=== PATIENT | female | born 1955 | race Caucasian/White ===

== ENCOUNTER → 2017-07-12 | Day surgery (SDC) | payer OTHER ==
[~2017-07-12] MED LIST: HYDROmorphone 2 MG/ML VIAL IV; LIDOCAINE 1% PF 2 ML VIAL. ID; LIDOCAINE 2% 100 MG/5 ML SYRINGE.; MORPHINE SULFATE 4 MG/ML DISP.SYRIN. IV; ONDANSETRON PF 4 MG/2 ML VIAL. IV; PROCHLORPERAZINE 10 MG/2 ML VIAL. IV; PROPOFOL 20 ML IV; fentaNYL PF VIAL 100 MCG/2 ML VIAL IV
[2017-07-12] MEDS: IV RINGERS,LACTATED 1000ML 1,000 ML IV (12:24)
== END ==
LOC: ENDOS 11:58
DX: K29.50 Unspecified chronic gastritis without bleeding (principal); K31.89 Other diseases of stomach and duodenum; Z79.899 Other long term (current) drug therapy
CPT/HCPCS: 43239; 88305; J2704

== ENCOUNTER → 2018-09-25 | Outpatient (CLI) | payer OTHER ==
[2017-07-12 13:33] VITALS: BP 116/62
[~2018-09-25] MED LIST changes: +DICL50TA4 PO; +GLUC1CAP41 PO; -HYDROmorphone 2 MG/ML VIAL IV; -LIDOCAINE 1% PF 2 ML VIAL. ID; -LIDOCAINE 2% 100 MG/5 ML SYRINGE.; +MELO15TA23 PO; +MOME17SP NS; -MORPHINE SULFATE 4 MG/ML DISP.SYRIN. IV; +MULT-208 PO; -ONDANSETRON PF 4 MG/2 ML VIAL. IV; -PROCHLORPERAZINE 10 MG/2 ML VIAL. IV; -PROPOFOL 20 ML IV; -fentaNYL PF VIAL 100 MCG/2 ML VIAL IV
[2018-09-25 08:14] LABS: HEMATOCRIT 39.1 % (36.0-47.0); RED BLOOD COUNT 4.02 x10^6/uL (3.50-5.40); RED CELL DISTRIBUTION WIDTH 14.7 % (11.5-14.5); WHITE BLOOD COUNT 5.7 x10^3/uL (4.0-11.0)
[2018-09-25 08:40] LABS: THYROID STIM HORMONE (TSH) 4.413 uIU/mL (0.358-3.74)
[2018-09-25 08:50] LABS: ALBUMIN 3.6 g/dL (3.4-5.0); ALBUMIN/GLOBULIN RATIO 1.2 (1.0-1.7); CHOLESTEROL/HDL RATIO 4.1; CREATININE 0.9 mg/dL (0.6-1.0); GFR 63.7; POTASSIUM 4.5 mmol/L (3.5-5.1); TOTAL BILIRUBIN 0.4 mg/dL (0.2-1.0); TOTAL PROTEIN 6.5 g/dL (6.4-8.2)
== END | disposition home or self-care (01) ==
LOC: LAB 07:49
PROVIDERS: ATTEND Nurse Practitioner Family
DX: Z13.228 Encounter for screening for other metabolic disorders (principal)
CPT/HCPCS: 36415; 80053; 80061; 82306; 84439; 84443; 85027

== ENCOUNTER → 2019-06-04 | Outpatient (CLI) | payer OTHER ==
[2017-07-12 13:33] VITALS: BP 116/62
--- NOTE | 2019-06-04 17:08 | KCIC ---
Bilateral digital screening mammograms with 3-D tomosynthesis: Reason for examination: Routine screening. New baseline. No previous examinations available for comparison. Bilateral mammograms in CC and oblique projections were obtained with 2-D imaging and 3-D tomosynthesis imaging on a Siemens Inspiration unit and reviewed on the workstation. Interpretation was made with the benefit of CAD. The skin and nipples show no abnormalities. No abnormal axillary lymph nodes are seen. The breast parenchyma shows scattered fatty and fibroglandular density. (Breast density: Category B.) There appears to be a small nodule consistent with an intramammary lymph node at the 2:00 B position of the left breast. There also appears to be a nodule laterally in the right breast probably at the 9:00 B position. Further evaluation with coned compression views and ultrasound is recommended. There are no other dominant masses, suspicious calcifications or architectural distortion. Impression: Nodular density suggested laterally in the right breast at the 9:00 B position. Recommend further evaluation with coned compression views and ultrasound. BI-RADS Category 0: Incomplete. Needs additional imaging evaluation. "Our facility is accredited by the [employer] Mammography Program." This patient's information has been entered into a reminder system for the patient to be notified with the results of her examination and a target date for the next mammogram. Electronically signed by: Minnie Gonzales MD (06/04/2019 5:05 PM) [facility]
== END | disposition home or self-care (01) ==
LOC: KCIC MAMMO 12:58
PROVIDERS: ATTEND Nurse Practitioner Family
DX: Z12.31 Encounter for screening mammogram for malignant neoplasm of breast (principal)
CPT/HCPCS: 77063; 77067

== ENCOUNTER → 2019-06-18 | Outpatient (CLI) | payer OTHER ==
[2017-07-12 13:33] VITALS: BP 116/62
--- NOTE | 2019-06-18 11:26 | KCIC ---
EXAM: Right breast diagnostic mammogram; right breast sonogram. HISTORY: 64-year-old female presents for evaluation of nodularity within the right breast demonstrated on a screening mammogram dated 06/04/2019. TECHNIQUE: Spot compression views of the right breast are obtained. Sonographic imaging of the right breast targeted to sites of mammographic nodularity was also performed. COMPARISON: 06/04/2019 BREAST PARENCHYMAL DENSITY: Level B - Scattered fibroglandular densities. FINDINGS: There is persistent nodularity within the 9:00 and 10:00 positions of the right breast at mid depth with the additional spot compression views. No architectural distortion or suspicious calcification is seen. Sonographic imaging of the right breast demonstrates a 1.2 cm suspected complicated cyst or fibrocystic lesion at the 9:00 position 6 cm from the nipple and similar-appearing smaller hypoechoic lesions measuring 4 mm at the 10:00 position 5 cm from the nipple and 5 mm at the 11:00 position 3 cm from the nipple. These likely accounts for areas of mammographic nodularity. No convincing suspicious sonographic lesion is seen. IMPRESSION: 1. Benign-appearing complicated cystic or fibrocystic lesions within the right breast at the 9:00, 10:00 and 11:00 positions, described above. These correspond with areas of mammographic nodularity. No convincing suspicious sonographic correlate is seen. 2. BI-RADS Category 3: Probably benign finding(s). Short term follow up with a diagnostic right breast mammogram and sonogram in 6 months is recommended to confirm stability. If your mammogram demonstrates that you have dense breast tissue, which could hide abnormalities, and if you have other risk factors for breast cancer that have been identified, you might benefit from supplemental screening tests that may be suggested by your ordering physician. Dense breast tissue, in and of itself, is a relatively common condition. This information is not provided to cause undue concern, but rather to raise your awareness and to promote discussion with your physician regarding the presence of other risk factors, in addition to dense breast tissue. A report of your mammography results will be sent to you and your physician. You should contact your physician if you have any questions or concerns regarding this report. Mammography is a sensitive method for finding small breast cancers, but it does not detect them all and is not a substitute for careful clinical examination. A negative mammogram does not negate a clinically suspicious finding and should not result in delay in biopsying a clinically suspicious abnormality. PQRS compliance statement - Patient information was entered into a reminder system with a target due date for the next mammogram. "Our facility is accredited by the [employer] Mammography Program." Electronically signed by: Dora Davis MD (06/18/2019 11:23 AM) [id number]
== END ==
LOC: KCIC MAMMO 09:42
PROVIDERS: ATTEND Nurse Practitioner Family
DX: R92.2 Inconclusive mammogram (principal)
CPT/HCPCS: 76641; 77065

== ENCOUNTER → 2019-12-31 | Outpatient (CLI) | payer OTHER ==
[2017-07-12 13:33] VITALS: BP 116/62
[2019-12-31 09:10] LABS: HEMATOCRIT 41.9 % (36.0-47.0); HEMOGLOBIN 14.1 g/dL (12.0-15.5); RED BLOOD COUNT 4.26 x10^6/uL (3.50-5.40); RED CELL DISTRIBUTION WIDTH 13.3 % (11.5-14.5); WHITE BLOOD COUNT 5.7 x10^3/uL (4.0-11.0)
[2019-12-31 09:21] LABS: ALBUMIN 3.8 g/dL (3.4-5.0); ALBUMIN/GLOBULIN RATIO 1.2 (1.0-1.7); CALCIUM 9.2 mg/dL (8.5-10.1); CHOLESTEROL/HDL RATIO 4.7; CREATININE 0.8 mg/dL (0.6-1.0); GFR 72.7; POTASSIUM 4.5 mmol/L (3.5-5.1); TOTAL BILIRUBIN 0.3 mg/dL (0.2-1.0); TOTAL PROTEIN 7.1 g/dL (6.4-8.2)
[2019-12-31 09:30] LABS: FREE T4 1.02 ng/dL (0.76-1.46); THYROID STIM HORMONE (TSH) 4.626 uIU/mL (0.358-3.74)
== END | disposition home or self-care (01) ==
LOC: LAB 07:58
PROVIDERS: ATTEND Nurse Practitioner Family
DX: E78.5 Hyperlipidemia, unspecified (principal); G47.00 Insomnia, unspecified
CPT/HCPCS: 36415; 80053; 80061; 82306; 84439; 84443; 85027

== ENCOUNTER → 2020-01-19 | Outpatient (CLI) | payer OTHER ==
[2017-07-12 13:33] VITALS: BP 116/62
--- NOTE | 2020-01-19 16:19 | RAD ---
Examination: MRI of the right knee, [employer] protocol COMPARISON: None available TECHNIQUE: MRI of the right knee was performed using [employer] protocol HISTORY: Osteoarthritis FINDINGS: The anterior cruciate ligament, posterior cruciate ligament appears intact. There is attenuated appearance of the body of the medial, lateral meniscus likely degenerative tears. Moderate knee joint effusion. The medial, lateral retinaculum appears intact. Small popliteal cyst is identified. Severe joint space loss identified in the medial, lateral, patellofemoral compartments most in the medial compartment. There is complete cartilage loss identified in the weightbearing portion of the medial compartment. Superficial fraying of cartilage identified in the lateral, patellofemoral compartments. IMPRESSION: 1. Tricompartmental degenerative changes most in the medial compartment. 2. Attenuated appearance of the medial, lateral menisci likely degenerative tears. Electronically signed by: Jose Martinez MD (01/19/2020 4:16 PM) [id number]
--- NOTE | 2020-01-19 17:28 | RAD ---
EXAM: Right lower extremity bone length study. HISTORY: Gaming [employer] Nephew protocol. COMPARISON: 06/03/2019. FINDINGS: Frontal views of the right lower extremity are obtained there there is severe medial compartment joint space narrowing with subchondral sclerosis and spurring. There is right genu varus. There is no fracture, dislocation or subluxation. IMPRESSION: Severe medial compartment osteoarthritis of the right knee. Electronically signed by: Dora Davis MD (01/19/2020 5:25 PM) [id number]
== END | disposition home or self-care (01) ==
LOC: RAD 13:59
PROVIDERS: ATTEND Orthopaedic Surgery Sports Medicine
DX: M17.11 Unilateral primary osteoarthritis, right knee (principal); M71.21 Synovial cyst of popliteal space [Baker], right knee; Z96.652 Presence of left artificial knee joint
CPT/HCPCS: 73721; 77073

== ENCOUNTER → 2020-01-26 | Outpatient (CLI) | payer OTHER ==
[2017-07-12 13:33] VITALS: BP 116/62
[~2020-01-26] MED LIST changes: +ASCO500C PO; +ATOR10TA PO; +BUDE3CAP15 PO; +CHOL500050 PO; +DIPH25CA58 PO; +LEVO50TA5 PO
[2020-01-26 09:40] LABS: BASO % 1 % (0-3); EOS # 0.3 x10^3/uL (0.0-0.7); EOS % 4 % (0-3); HEMATOCRIT 40.4 % (36.0-47.0); HEMOGLOBIN 13.5 g/dL (12.0-15.5); LYMPH # 1.8 x10^3/uL (1.0-4.8); LYMPH % 30 % (24-48); MEAN CORPUSCULAR HEMOGLOBIN 33 pg (25-35); MEAN CORPUSCULAR HGB CONC 33 g/dL (31-37); MEAN CORPUSCULAR VOLUME 98 fL (79-100); MONO # 0.4 x10^3/uL (0.0-1.1); MONO % 7 % (0-9); NEUT # 3.6 x10^3/uL (1.8-7.7); NEUT % 58 % (31-73); PLATELET COUNT 256 x10^3/uL (140-400); RED BLOOD COUNT 4.15 x10^6/uL (3.50-5.40); RED CELL DISTRIBUTION WIDTH 13.6 % (11.5-14.5); WHITE BLOOD COUNT 6.1 x10^3/uL (4.0-11.0)
[2020-01-26 09:50] LABS: PROTHROMBIN TIME PATIENT 12.4 SEC (11.7-14.0)
[2020-01-26 09:53] LABS: ALBUMIN 3.7 g/dL (3.4-5.0); C-REACTIVE PROTEIN 3.7 mg/L (0-3.3); CALCIUM 9.4 mg/dL (8.5-10.1); CREATININE 0.9 mg/dL (0.6-1.0); GFR 63.2; POTASSIUM 4.4 mmol/L (3.5-5.1)
--- NOTE | 2020-01-26 12:48 | EKG ---
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
--- NOTE | 2020-01-26 15:34 | RAD ---
EXAM: CHEST PA LATERAL 01/26/2020 9:02 AM CLINICAL INDICATION: Hypertension, joint rehabilitation COMPARISON: None TECHNIQUE: PA and lateral views of the chest FINDINGS: The heart and mediastinum are normal. Lungs are well-expanded and clear. No consolidation, pleural effusion, or pneumothorax. Pulmonary vascularity is normal. There are old left anterior rib fractures.. IMPRESSION: No acute cardiopulmonary abnormality. Electronically signed by: Yesi Ortiz MD (01/26/2020 3:31 PM) [id number]
[2020-01-27 01:08] LABS: HEMOGLOBIN A1C 5.8 % (4.8-5.6)
== END ==
LOC: SURGPAT 12:42
PROVIDERS: ATTEND Orthopaedic Surgery Sports Medicine
DX: Z01.818 Encounter for other preprocedural examination (principal); M17.11 Unilateral primary osteoarthritis, right knee; I10 Essential (primary) hypertension
CPT/HCPCS: 36415; 71046; 80048; 82040; 82306; 83036; 85025; 85610; 85730; 86140; 87641; 93005

== ENCOUNTER → 2020-02-09 | Outpatient (CLI) | payer OTHER ==
[2017-07-12 13:33] VITALS: BP 116/62
--- NOTE | 2020-02-09 15:45 | RAD ---
EXAMINATION: Diagnostic right breast mammogram, right breast ultrasound, 02/09/2020 10:15 AM CLINICAL INDICATION: 65-year-old woman presenting for six-month follow-up of probably benign complicated cyst of fibrocystic lesions in the right breast at 9:00, 10:00, 11:00. COMPARISON: Screening mammogram 06/04/2019 and right breast ultrasound 06/18/2019 TECHNIQUE: Digital full field CC and MLO views of the right breast and tomosynthesis were obtained. Targeted ultrasound of the right breast at 9-11 o'clock was performed.. FINDINGS: Mammogram: There are scattered areas of fibroglandular density. The area of nodularity in the upper outer right breast is unchanged. No new mass, architectural distortion, or calcifications. Ultrasound: The ovoid hypoechoic lesions in the upper outer right breast have not significantly changed. This includes a ovoid hypoechoic mass at 9:00, 6 cm the nipple measuring 11 x 9 x 4 mm. An ovoid hypoechoic mass at 10:00 5 cm from the nipple measuring 4 x 3 x 2 mm. An oval hypoechoic mass at 11:00 3 cm the nipple measuring 8 x 6 x 2 mm. IMPRESSION: 1. Stable probably benign hypoechoic lesions in the upper outer right breast. Recommend 6 month follow-up ultrasound, which time the patient will be due for annual mammogram. 2. BI-RADS 3--probably benign. 3. A results and recommendation letter will be sent to the patient. A reminder letter will be sent when she is due for her next exam. Electronically signed by: Yesi Oritz MD (02/09/2020 3:42 PM) [id number]
== END ==
LOC: MAMMO 10:04
PROVIDERS: ATTEND Nurse Practitioner Family
DX: Z09 Encounter for follow-up examination after completed treatment for conditions other than malignant neoplasm (principal); R92.8 Other abnormal and inconclusive findings on diagnostic imaging of breast; N63.11 Unspecified lump in the right breast, upper outer quadrant
CPT/HCPCS: 76641; 77065; G0279; 77061

== ENCOUNTER → 2020-02-13 | Outpatient (CLI) | payer OTHER ==
[2017-07-12 13:33] VITALS: BP 116/62
== END ==
LOC: SURGPAT 15:01
PROVIDERS: ATTEND Orthopaedic Surgery Sports Medicine
DX: Z01.812 Encounter for preprocedural laboratory examination (principal); Z20.828 Contact with and (suspected) exposure to other viral communicable diseases; M19.90 Unspecified osteoarthritis, unspecified site
CPT/HCPCS: U0003-CS

== ENCOUNTER 2020-02-16 06:11 | Observation (INO) | payer OTHER ==
[~2020-02-16] VITALS: Ht 167.6 cm; Wt 95.5 kg
[~2020-02-16 06:11] MED LIST changes: +ACETAMINOPHEN 500 MG TABLET PO PRN; +GABAPENTIN 300 MG CAPSULE. PO PRN; +MELOXICAM 7.5 MG TABLET PO PRN; +TRANEXAMIC ACID 1,000 MG in IV NS 50ML -- 1ST BAG INJ ONE; +TV=100ml MORPHINE 5 MG, KETOROLAC 30 MG, ROPIVacaine 0.5% PF 60 ML, EPINEPH... INT ART ONE; +VANCOMYCIN 1GM IVPB FOR OMNI 250 ML IV PRN
[2020-02-16] MEDS ORDERED: fentaNYL PF VIAL 100 MCG/2 ML VIAL IV PRN ×2 (07:00)
[2020-02-16] MEDS ORDERED: LIDOCAINE 1% PF 2 ML VIAL. ID PRN (07:00)
[2020-02-16] MEDS ORDERED: HYDROmorphone 2 MG/ML VIAL IV PRN (07:00)
[2020-02-16] MEDS ORDERED: PROCHLORPERAZINE 10 MG/2 ML VIAL. IV PRN (07:00)
[2020-02-16] MEDS ORDERED: ONDANSETRON PF 4 MG/2 ML VIAL. IV PRN (07:00)
[2020-02-16] MEDS ORDERED: IV RINGERS,LACTATED 1000ML 1,000 ML IV SCH (07:00)
[2020-02-16] MEDS ORDERED: PROPOFOL 10 MG/ML (20ML) VIAL. IV ONE (07:14)
[2020-02-16] MEDS ORDERED: FAMOTIDINE 20 MG/2 ML VIAL ONE (07:15)
[2020-02-16] MEDS ORDERED: DEXAMETHASONE SOD PHOS 4 MG/ML VIAL ONE (07:15)
[2020-02-16] MEDS ORDERED: LIDOCAINE 2% PF 5 ML VIAL. ONE (07:15)
[2020-02-16] MEDS ORDERED: ONDANSETRON PF 4 MG/2 ML VIAL. ONE (07:15)
[2020-02-16] MEDS ORDERED: fentaNYL PF VIAL 250 MCG/5 ML VIAL ONE (07:18)
[2020-02-16] MEDS ORDERED: VANCOMYCIN 1 GM VIAL. ONE (07:21)
[2020-02-16 07:29] LABS: PROTHROMBIN TIME PATIENT 12.3 SEC (11.7-14.0)
[2020-02-16] MEDS: IV NORMAL SALINE 1000ML BAG 1,000 ML IV SCH ×2 (07:37→20:55)
[2020-02-16] MEDS ORDERED: 0.9 % SODIUM CHLORIDE 10 ML DISP.SYRIN. IV PRN (07:45)
[2020-02-16] MEDS ORDERED: MORPHINE SULFATE 2 MG/ML VIAL. IVP PRN (07:45)
[2020-02-16] MEDS ORDERED: DEXTROSE 50% 25 GM / 50ML DISP.SYRIN. IV PRN (07:45)
[2020-02-16] MEDS ORDERED: METOCLOPRAMIDE HCL 10 MG/2 ML VIAL. IVP PRN (07:45)
[2020-02-16] MEDS ORDERED: CALCIUM CARBONATE 500 MG TAB.CHEW PO PRN (07:45)
[2020-02-16] MEDS ORDERED: diphenhydrAMINE 50 MG/ML VIAL IVP PRN (07:45)
[2020-02-16] MEDS ORDERED: ZOLPIDEM 5 MG TABLET. PO PRN (07:45)
[2020-02-16] MEDS ORDERED: PROCHLORPERAZINE 5 MG TABLET. PO PRN (07:45)
[2020-02-16] MEDS ORDERED: TRANEXAMIC ACID 1,000 MG in IV NS 50ML -- 2ND BAG INJ ONE (08:00)
[2020-02-16] MEDS ORDERED: ePHEDrine PF IN SALINE 50 MG/10 ML SYRINGE. IV ONE (08:24)
[2020-02-16] MEDS ORDERED: GLYCOPYRROLATE 1 MG/5 ML VIAL. ONE (08:25)
[2020-02-16] MEDS ORDERED: diphenhydrAMINE 50 MG/ML VIAL ONE (08:27)
[2020-02-16] MEDS ORDERED: BUDESONIDE 3 MG CAP.ER.24H. PO SCH (09:00)
[2020-02-16] MEDS ORDERED: SEVOFLURANE 61 TO 120 MINUTES. IH ONE (09:02)
--- NOTE | 2020-02-16 09:36 | PDOC4 ---
Operative Note Operative Note Date of procedure: 02/16/2020 Surgeon: Jessee Holden Sheet Music Salesperson: Madhav Conde Preoperative diagnosis: Advanced primary right knee degenerative joint disease Postoperative diagnosis: Same Procedure performed: Right total knee arthroplasty Anesthesia: General Complications: None Tourniquet time: 47 minutes Blood loss: 50 mL Components inserted: Gaming [employer]hew Oxinium size 4 right femoral component, size 3 journey tibial baseplate, 23 mm biconvex patella, 9 mm thick polyethylene articular insert Reason for procedure: Patient is a very pleasant 65-year-old female whom I have been following for several years regarding her primarily medial right knee pain. We have tried physical therapy, anti-inflammatory medicines, intra-articular injections, and an nutrition assistant brace, all of these have failed to provide her relief from her progressive pain that is interfering with her ability to ambulate as far she needs to and cause interference with her other activities of daily living as well. Because of this, we had a discussion of the risks, benefits, and alternatives to the above procedure and she wished to proceed. Description of procedure: Patient was greeted in the preoperative holding area by myself or the correct extremity was verified and marked. She is taken the operative suite, her vancomycin was started well before this. Once in the operating room, she was transferred gently supine to the operating table and secured to the bed with all pressure points padded. Her Ancef was started. She underwent successful induction of a general anesthetic. We applied and taped in place a nonsterile tourniquet to her right thigh. A padded bump was secured to the bed and a padded foot rest was secured to the bed as well, these maintained her knee at 90 degrees of flexion passively. Examination under anesthesia demonstrated range of motion from about 3 degrees to 130 degrees. Knee was stable to varus and valgus in extension and 30 degrees of flexion. We then p roceeded to prep and drape right lower extremity our usual sterile fashion and conducted our standard preoperative timeout. After this, I palpated marked surface anatomy and evelyn lines on the [place] for my incision. Extremity was exsanguinated with an Esmarch and tourniquet insufflated to 250 mmHg. I incised skin with a scalpel and dissected subcutaneous tissue with electrocautery until identified the extensor mechanism including quadriceps tendon, borders of the patella and patellar tendon as well as tibial tubercle. I then made my standard medial parapatellar arthrotomy. I bluntly dissected the fat pad off of the posterior aspect of the patellar tendon and protected this with an [place] while I excised the fat pad. I then performed my medial release with combination Yadav elevator and electrocautery to just past the mid coronal point. I took down osteophytes medially. I then flexed the knee, placed my Z retractors in place, and remove the cruciate ligaments. I then released the anterior horns of the meniscus. I then removed synovium over the anterior distal femur for visualization. After this I pinned my visionary femoral cutting block into position, I marked my holes. I then remove this block complete and placed the standard cutting block at the +2 position and made my distal femoral cut. I then impacted my distal femoral 5 1 cutting guide into position and secured it with threaded pins. I then made these cuts, removing the cutting guide and the bony pieces. I made sure to remove any osteophytes posteriorly. After this, I added in a pickle fork retractor and reposition my Z retractors. I then pinned the visionary tibial cutting block in position, checking its alignment with a drop aleks and I agreed with this. Therefore I made my proximal tibial cut and deliver the bony remnant from the operative field with circumferentially electrocautery. I then brought the knee out into extension, checking alignment with spacer block and drop aleks and was happy with this. I then introduced a lamina steel wool machine operator and excised the meniscal tissue leaving a rim peripherally for later identification if needed. After this I reposition the knee and retractors. I then sized and pinned my trial baseplate in position and reamed and punched for the baseplate. I then placed my trial femoral component position and trialed a size 9 and size 10 trial articular inserts, the 9 gave great range of motion, I thought the 10 was a little tight in extension. With the 9 end, her knee was stable to varus and valgus in extension mid flexion. I then directed my attention to the patella, reamed for a 23 biconvex patella. With all trial components in place she had excellent range of motion stability and patellar tracking. We then removed all trial components and thoroughly irrigated all bony surfaces. I then proceeded to cement in place my tibial baseplate followed by impacting this removing excess bone cement. I then repeated this at the femur with the femoral component. After this I placed a trial 9 articular insert, the cement was allowed polymerized with the knee in extension. I then clamped in place with cement my patellar button. While the cement was hardening, I injected my periarticular mixture into the periincisional soft tissue envelope as well as around her knee. After the cement had fully hardened, range of motion was 0-140, knee was stable to varus and valgus in extension and mid flexion. Therefore I remove the trial articular insert, thoroughly irrigated the operative field again and placed the polyethylene articular insert and visualizing it seated appropriately. After this, tourniquet was let down, some bleeders were cauterized. She had some extravasation from the [place] in her tibia and exposed bony edges that her femur and elected to place a 1/8 inch Hemovac exiting superolaterally from her knee. We made sure to irrigated everything out again and inspect for any loose debris, we noted none. After this, arthrotomy was closed with simple interrupted #1 Vicryl with an exception of a [id number] proximally. In verted interrupted 2 oh in a multilayered fashion was used for subcutaneous tissue and running 3-0 Monocryl in a buried subcuticular fashion was used for skin. All counts correct x2 prior to wound closure. No complications. At the conclusion, her leg and knee were cleansed and dried and our incisional wound VAC was applied. She tolerated surgery well. She was then awakened from anesthesia and transferred gently supine to the hospital bed and taken to the PACU in stable and extubated condition. Postoperative plan is to admit her to the floor for pain control, she will receive DVT and antibiotic prophylaxis as well as PT and OT. JESSEE HOLDEN II, MD Feb 16, 2020 09:36
--- NOTE | 2020-02-16 10:19 | RAD ---
EXAM: Right knee, 2 views. HISTORY: Arthroplasty. COMPARISON: None. FINDINGS: 2 views of the right knee are obtained. There is a right knee arthroplasty in expected position. There is soft tissue gas, joint fluid and a drain due to recent surgery. There is a posterior knee joint loose body. There is bandage material overlying the knee. IMPRESSION: Right knee arthroplasty in expected position, with surrounding soft tissue changes due to recent surgery. Posterior right knee joint loose body. Electronically signed by: Dora Davis MD (02/16/2020 10:16 AM) [id number]
[2020-02-16] MEDS: MORPHINE SULFATE 2 MG/ML VIAL. IV PRN ×2 (10:37→10:52)
[2020-02-16] MEDS: ONDANSETRON PF 4 MG/2 ML VIAL. IVP SCH ×3 (12:00→23:53)
[2020-02-16] MEDS: ONDANSETRON ODT 4 MG TAB.RAPDIS. PO SCH ×3 (12:00→23:54)
[2020-02-16] MEDS: oxyCODONE IR 5 MG TABLET PO PRN ×2 (13:26→20:52)
[2020-02-16 15:45] VITALS: BP 106/57
[2020-02-16] MEDS ORDERED: WARFARIN 7.5 MG TABLET. PO ONE (16:00)
[2020-02-16] MEDS: FERROUS SULFATE 325 MG TABLET. PO SCH (17:00)
--- NOTE | 2020-02-16 17:37 | PDOC2 ---
CONSULT Date of Consult Date of Consult DATE: 02/16/20 TIME: 17:32 Reason for Consult Reason for Consult: Assist with medical management RASH Referring Physician Referring Physician: Dr. Jessee Maldonado Identification/Chief Complaint Chief Complaint Right total knee arthroplasty Source Source: Patient History of Present Illness Reason for Visit: Ms Mercer is a 65yo F w/ PMHx prediabetes, obesity, hypothyroidism, CHERIE on CPAP, IBD, OA of right knee who presents for a right total knee arthroplasty. Tolerated procedure well. EKG - NSR Labs with HbA1c 5.8, INR 1, WBC 6.1, Hb 13.5, platelets 256, albumin 3.7, NA 140, K4.4, BUN 15, CR 0.9, glucose 96, vitamin D 39.3, CRP 3.7. UA bland. Post-op right knee XR with arthroplasty in expected position. Seen post-operatively for concern for rash on her chest noted after vancomycin infusion. She did have MRSA nares positive and pre-op chlorhexidine was given as well as aforementioned vancomycin. She did spend a week in [place] with on a golf trip over a week ago and has a suntan, this appears to be cause of her skin discoloration. She is in good spirits, seen bedside with her . Past Medical History GI: Inflam bowel disease Endocrine: Hypothyroidism Past Surgical History Past Surgical History: Total knee replacement Family History Family History: High Cholestrol Social History No ALCOHOL: rare Drugs: None Lives: with Family Domestic Violence: Neg Current Medications Current Medications Current Medications Ondansetron HCl (Zofran) 4 mg PRN Q6HRS PRN IV NAUSEA/VOMITING; Start 02/16/20 at 07:00; Stop 02/17/20 at 06:59 Fentanyl Citrate (Fentanyl 2ml Vial) 25 mcg PRN Q5MIN PRN IV MILD PAIN 1-3; Start 02/16/20 at 07:00; Stop 02/17/20 at 06:59 Fentanyl Citrate (Fentanyl 2ml Vial) 50 mcg PRN Q5MIN PRN IV MODERATE TO SEVERE PAIN Last administered on 02/16/20at 10:10; Start 02/16/20 at 07:00; Stop 02/17/20 at 06:59 Morphine Sulfate (Morphine Sulfate) 1 mg PRN Q10MIN PRN IV SEVERE PAIN 7-10 Last administered on 02/16/20at 10:52; Start 02/16/20 at 07:00; Stop 02/17/20 at 06:59 Ringer's Solution 1,000 ml @ 30 mls/hr Q24H IV Last administered on 02/16/20at 07:10; Start 02/16/20 at 07:00; Stop 02/16/20 at 18:59 Lidocaine HCl (Xylocaine-Mpf 1% 2ml Vial) 2 ml PRN 1X PRN ID PRIOR TO IV START; Start 02/16/20 at 07:00; Stop 02/17/20 at 06:59 Hydromorphone HCl (Dilaudid) 0.5 mg PRN Q10MIN PRN IV SEV PAIN, Second choice; Start 02/16/20 at 07:00; Stop 02/17/20 at 06:59 Prochlorperazine Edisylate (Compazine) 5 mg PACU PRN PRN IV NAUSEA, MRX1; Start 02/16/20 at 07:00; Stop 02/17/20 at 06:59 Meloxicam (Mobic) 15 mg 1X PREOP PRN PO PRIOR TO PROCEDURE Last administered on 02/16/20at 07:16; Start 02/16/20 at 06:00; Stop 02/16/20 at 18:00 Gabapentin (Neurontin) 600 mg 1X PREOP PRN PO PRIOR TO PROCEDURE Last administered on 02/16/20at 07:17; Start 02/16/20 at 06:00; Stop 02/16/20 at 18:00 Acetaminophen (Tylenol) 1,000 mg 1X PREOP PRN PO PRIOR TO PROCEDURE Last administered on 02/16/20at 07:17; Start 02/16/20 at 06:00; Stop 02/16/20 at 18:00 Cefazolin Sodium/ Dextrose 50 ml @ 100 mls/hr 1X PREOP PRN IV PRIOR TO PROCEDURE Last administered on 02/16/20at 08:56; Start 02/16/20 at 06:00; Stop 02/16/20 at 18:00 Vancomycin HCl 250 ml @ 250 mls/hr 1X PREOP PRN IV PRIOR TO PROCEDURE Last administered on 02/16/20at 07:10; Start 02/16/20 at 06:00; Stop 02/16/20 at 18:00 Morphine Sulfate 5 mg/Ketorolac Tromethamine 30 mg/Ropivacaine 60 ml/Epinephrine HCl 0.5 mg/Sodium Chloride 100 ml @ 100 mls/hr 1X PERIOP ONCE INT ART Last administered on 02/16/20at 08:08; Start 02/16/20 at 06:00; Stop 02/16/20 at 06:59; Status DC Tranexamic Acid 1000 mg/Sodium Chloride 60 ml @ 60 mls/hr 1X PERIOP ONCE INJ ; Start 02/16/20 at 06:00; Stop 02/16/20 at 06:59; Status DC Tranexamic Acid 1000 mg/Sodium Chloride 60 ml @ 60 mls/hr 1X PERIOP ONCE INJ ; Start 02/16/20 at 08:00; Stop 02/16/20 at 08:59; Status DC Propofol (Diprivan) 200 mg STK-MED ONCE IV ; Start 02/16/20 at 07:14; Stop 02/16/20 at 07:15; Status DC Lidocaine HCl (Lidocaine Pf 2% Vial) 5 ml STK-MED ONCE .ROUTE ; Start 02/16/20 at 07:15; Stop 02/16/20 at 07:15; Status DC Dexamethasone Sodium Phosphate (Decadron) 4 mg STK-MED ONCE .ROUTE ; Start 1 at 07:15; Stop 02/16/20 at 07:15; Status DC Famotidine (Pepcid Vial) 20 mg STK-MED ONCE .ROUTE ; Start 02/16/20 at 07:15; Stop 02/16/20 at 07:15; Status DC Ondansetron HCl (Zofran) 4 mg STK-MED ONCE .ROUTE ; Start 02/16/20 at 07:15; Stop 02/16/20 at 07:16; Status DC Fentanyl Citrate (Fentanyl 5ml Vial) 250 mcg STK-MED ONCE .ROUTE ; Start 02/16/20 at 07:18; Stop 02/16/20 at 07:18; Status DC Vancomycin HCl (Vancomycin) 1 gm STK-MED ONCE .ROUTE ; Start 02/16/20 at 07:21; Stop 02/16/20 at 07:22; Status DC Morphine Sulfate (Morphine Sulfate) 2 mg PRN Q1HR PRN IVP PAIN; Start 02/16/20 at 07:45 Fentanyl Citrate (Fentanyl 2ml Vial) 25 mcg PRN Q1HR PRN IVP PAIN, 2nd CHOICE; Start 02/16/20 at 07:45 Diphenhydramine HCl (Benadryl) 25 mg PRN Q6HRS PRN IVP ITCHING; Start 02/16/20 at 07:45 Warfarin Sodium (Coumadin) 7.5 mg 1X ONCE PO ; Start 02/16/20 at 16:00; Stop 02/16/20 at 16:01; Status DC Warfarin Sodium (Coumadin Per Pharmacy) 1 each PRN DAILY PRN MC SEE COMMENTS; Start 02/16/20 at 07:45 Multivitamins (Thera M Plus) 1 tab DAILY PO ; Start 02/17/20 at 09:00 Senna/Docusate Sodium (Senna Plus) 1 tab DAILY PO ; Start 02/17/20 at 09:00 Ferrous Sulfate (Feosol) 325 mg BIDWMEALS PO ; Start 02/16/20 at 17:00 Sodium Chloride 1,000 ml @ 40 mls/hr Q24H IV ; Start 02/16/20 at 07:37; Stop 02/17/20 at 08:00 Vancomycin HCl 1 gm/Sodium Chloride 250 ml @ 250 mls/hr 1X ONCE IV ; Start 02/16/20 at 19:00; Stop 02/16/20 at 19:59 Prochlorperazine Maleate (Compazine) 10 mg PRN Q4HRS PRN PO Nausea/vomiting, 2nd choice; Start 02/16/20 at 07:45 Metoclopramide HCl (Reglan Vial) 10 mg PRN Q4HRS PRN IVP NAUSEA/VOMITING, 3rd CHOICE; Start 02/16/20 at 07:45 Magnesium Hydroxide (Milk Of Magnesia) 2,400 mg 1X PRN PRN PO CONSTIPATION; Start 02/17/20 at 06:00; Stop 02/18/20 at 05:59 Bisacodyl (Dulcolax Supp) 10 mg 1X PRN PRN IA CONSTIPATION; Start 02/17/20 at 16:00; Stop 02/18/20 at 15:59 Zolpidem Tartrate (Ambien) 5 mg PRN QHS PRN PO INSOMNIA, MAY REPEAT IN 1HR; Start 02/16/20 at 07:45 Calcium Carbonate/ Glycine (Tums) 500 mg PRN QID PRN PO INDIGESTION; Start 02/16/20 at 07:45 Sodium Chloride (Normal Saline Flush) 10 ml QSHIFT PRN IV AFTER MEDS AND BLOOD DRAWS; Start 02/16/20 at 07:45 Acetaminophen (Tylenol) 1,000 mg Q6H PO ; Start 02/17/20 at 09:00 Ondansetron HCl (Zofran) 4 mg Q6HRS IVP ; Start 02/16/20 at 12:00; Stop 02/17/20 at 06:01 Ondansetron HCl (Zofran Odt) 4 mg Q6HRS PO ; Start 02/16/20 at 12:00; Stop 02/17/20 at 06:01 Ondansetron HCl (Zofran) 4 mg PRN Q6HRS PRN IVP Nausea/vomiting, 1st choice; Start 02/17/20 at 12:00 Ondansetron HCl (Zofran Odt) 4 mg PRN Q6HRS PRN PO Nausea/vomiting, 1st choice; Start 02/17/20 at 12:00 Oxycodone HCl (Roxicodone) 5 mg PRN Q4HRS PRN PO Pain score 4-6 Last administered on 02/16/20at 13:26; Start 02/16/20 at 07:45 Dextrose (Dextrose 50%-Water Syringe) 12.5 gm PRN Q15MIN PRN IV SEE COMMENTS; Start 02/16/20 at 07:45 Atorvastatin Calcium (Lipitor) 10 mg HS PO ; Start 02/16/20 at 21:00 Budesonide (Entocort) 3 mg DAILY PO ; Start 02/16/20 at 09:00 Diphenhydramine HCl (Benadryl) 25 mg QHS PO ; Start 02/16/20 at 21:00 Levothyroxine Sodium (Synthroid) 50 mcg DAILYAC PO ; Start 02/17/20 at 07:30 Vitamin D (Vitamin D3) 1,000 unit DAILY PO ; Start 02/17/20 at 09:00 Diclofenac Sodium (Voltaren) 75 mg BID PO ; Start 02/16/20 at 21:00 Ephedrine Sulfate (ePHEDrine PF IN SALINE SYRINGE) 50 mg STK-MED ONCE IV ; Start 02/16/20 at 08:24; Stop 02/16/20 at 08:25; Status DC Glycopyrrolate (Robinul) 1 mg STK-MED ONCE .ROUTE ; Start 02/16/20 at 08:25; Stop 02/16/20 at 08:25; Status DC Sevoflurane (Ultane) 60 ml STK-MED ONCE IH ; Start 02/16/20 at 09:02; Stop 02/16/20 at 09:02; Status DC Diphenhydramine HCl (Benadryl) 50 mg STK-MED ONCE .ROUTE ; Start 02/16/20 at 08:27; Stop 02/16/20 at 11:14; Status DC Active Scripts Active Reported Benadryl (Diphenhydramine Hcl) 25 Mg Capsule 25 Mg PO QHS Vitamin C (Ascorbic Acid) 500 Mg Capsule.er 250 Mg PO DAILY Vitamin D3 (Cholecalciferol (Vitamin D3)) 1,250 Mcg Capsule 1,000 Units PO DAILY Entocort Ec (Budesonide) 3 Mg Capdr...er 3 Mg PO DAILY Levothyroxine Sodium 50 Mcg Tablet 50 Mcg PO DAILYAC Lipitor (Atorvastatin Calcium) 10 Mg Tablet 10 Mg PO HS Diclofenac Sodium 50 Mg Tablet.dr 75 Mg PO BID Multi-Day Vitamins (Multivitamin) 1 Each Tablet 1 Each PO Allergies Allergies: Coded Allergies: No Known Drug Allergies (Unverified , 02/16/20) ROS General: No: Chills, Night Sweats, Fatigue, Malaise, Appetite, Other PSYCHOLOGICAL ROS: No: Anxiety, Behavioral Disorder, Concentration difficultie, Decreased libido, Depression, Disorientation, Hallucinations, Hostility, Irritablity, Memory difficulties, Mood Swings, Obsessive thoughts, Physical abuse, Sexual abuse, Sleep disturbances, Suicidal ideation, Other Eyes: No Blurry vision, No Decreased vision, No Double vision, No Dry eyes, No Excessive tearing, No Eye Pain, No Itchy Eyes, No Loss of vision, No Photophobia, No Scotomata, No Uses contacts, No Uses glasses, No Other HEENT: No: Heacaches, Visual Changes, Hearing change, Nasal congestion, Nasal discharge, Oral lesions, Sinus pain, Sore Throat, Epistaxis, Sneezing, Snoring, Tinnitus, Vertigo, Vocal changes, Other ALLERGY AND IMMUNOLOGY: No: Hives, Insect Bite Sensitivity, Itchy/Watery Eyes, Nasal Congestion, Post Nasal Drip, Seasonal Allergies, Other Hematological and Lymphatic: No: Bleeding Problems, Blood Clots, Blood Transfusions, Brusing, Night Sweats, Pallor, Swollen Lymph Nodes, Other ENDOCRINE: No: Breast Changes, Galactorrhea, Hair Pattern Changes, Hot Flashes, Malaise/lethargy, Mood Swings, Palpitations, Polydipsia/polyuria, Skin Changes, Temperature Intolerance, Unexpected Weight Changes, Other Breast: No New/Changing Breast Lumps, No Nipple changes, No Nipple discharge, No Other Respiratory: No: Cough, Hemoptysis, Orthopnea, Pleuritic Pain, Shortness of breath, SOB with excertion, Sputum Changes, Stridor, Tachypnea, Wheezing, Other Cardiovascular: No Chest Pain, No Palpitations, No Orthopnea, No Paroxysmal Noc. Dyspnea, No Edema, No Lt Headedness, No Other Gastrointestinal: No Nausea, No Vomiting, No Abdominal Pain, No Diarrhea, No Constipation, No Melena, No Hematochezia, No Other Genitourinary: No Dysuria, No Frequency, No Incontinence, No Hematuria, No Retention, No Discharge, No Urgency, No Pain, No Flank Pain, No Other, No , No , No , No , No , No , No Musculoskeletal: Yes Joint Stiffness; No Gait Disturbance, No Joint Pain, No Joint Swelling, No Muscle Pain, No Muscular Weakness, No Pain In:, No Swelling In:, No Other Neurological: No Behavorial Changes, No Bowel/Bladder ControlChng, No Confusion, No Dizziness, No Gait Disturbance, No Headaches, No Impaired Coord/balance, No Memory Loss, No Numbness/Tingling, No Seizures, No Speech Problems, No Tremors, No Visual Changes, No Weakness, No Other Skin: No Dry Skin, No Eczema, No Hair Changes, No Lumps, No Mole Changes, No Mottling, No Nail Changes, No Pruritus, No Rash, No Skin Lesion Changes, No Other, No Acne Physical Exam General: Alert, Oriented X3, Cooperative, No acute distress HEENT: Atraumatic, PERRLA, EOMI, Mucous membr. moist/pink Lungs: Clear to auscultation, Normal air movement Heart: Regular rate, Normal S1, Normal S2, No murmurs Abdomen: Normal bowel sounds, Soft, No tenderness, No hepatosplenomegaly, No masses Extremities: No clubbing, No cyanosis, Normal pulses, Other (Right knee in wrap) Skin: No rashes, No breakdown Neuro: Normal gait, Normal speech, Strength at 5/5 X4 ext, Normal tone, Sensation intact, Cranial nerves 3-12 NL, Reflexes 2+ Psych/Mental Status: Mental status NL, Mood NL MUSCULOSKELETAL: No deformity, No muscular tenderness noted Vitals VITALS Vital Signs Date Time Temp Pulse Resp B/P (MAP) Pulse Ox O2 Delivery O2 Flow Rate FiO2 02/16/20 15:45 98.6 66 20 106/57 (73) 95 Room Air 98.6 02/16/20 15:05 2 Labs Labs Laboratory Tests Test 02/16/20 06:38 Prothrombin Time 12.3 SEC (11.7-14.0) Prothromb Time International Ratio 1.0 (0.8-1.1) Activated Partial Thromboplast Time 19 SEC (24-38) Laboratory Tests Test 02/16/20 06:38 Prothrombin Time 12.3 SEC (11.7-14.0) Prothromb Time International Ratio 1.0 (0.8-1.1) Activated Partial Thromboplast Time 19 SEC (24-38) Images Images Right knee XR: 2 views of the right knee are obtained. There is a right knee arthroplasty in expected position. There is soft tissue gas, joint fluid and a drain due to recent surgery. There is a posterior knee joint loose body. There is bandage material overlying the knee. IMPRESSION: Right knee arthroplasty in expected position, with surrounding soft tissue changes due to recent surgery. Posterior right knee joint loose body. Assessment/Plan Assessment/Plan A/P: Rash - noted on chest. This appears to be sun-related skin damage from recent outdoor exposure. Right knee OA s/p TKA - 02/16/2020. Pain control, PT, IS bedside. Warfarin for thromboprophylaxis appropriate Prediabetes - with A1c 5.8 and weight the current AACE guidelines recommend metformin therapy and lifestyle modification. Will place on sliding scale and outpatient metformin therapy can start Obesity - counseled on diet, exercise Hypothyroidism - cont levothyroxine 50mcg daily CHERIE on CPAP - ok to use home device IBD - collagenous colitiis on entocort QHS, will continue MRSA nares positive - cont chlorhexidine body wash and patient completed 5 days mupirocin nasal decolonization starting 02/10/2020. Perioperative vancomycin is appropriate coverage. FEN - ADA diet PPX - warfarin FULL CODE Dispo - observation for post-op right total knee arthroplasty with no immediate complications. I anticipate discharge home in AM per orthopedic surgery. Thank you for the consultation We will continue to follow inpatient for any questions, concerns NAN LIZAMA MD Feb 16, 2020 17:37
[2020-02-16 19:00] VITALS: BP 106/57
[2020-02-16] MEDS ORDERED: VANCOMYCIN 1 GM in IV NORMAL SALINE 250ML 250 ML IV ONE (19:00)
[2020-02-16] MEDS: DICLOFENAC SODIUM 25 MG TABLET.DR PO SCH (20:51)
[2020-02-16] MEDS: ATORVASTATIN CALCIUM 10 MG TABLET. PO SCH (20:51)
[2020-02-16] MEDS: diphenhydrAMINE HCL 25 MG CAPSULE PO SCH (20:54)
[2020-02-16 23:00] VITALS: BP 117/61
[2020-02-17] MEDS: oxyCODONE IR 5 MG TABLET PO PRN ×4 (00:53→14:38)
[2020-02-17] MEDS ORDERED: ASPIRIN 325 MG TABLET PO PRN (02:45)
[2020-02-17] MEDS: ONDANSETRON PF 4 MG/2 ML VIAL. IVP SCH (05:52)
[2020-02-17] MEDS: ONDANSETRON ODT 4 MG TAB.RAPDIS. PO SCH (05:53)
[2020-02-17] MEDS ORDERED: MAGNESIUM HYDROXIDE 2,400 MG/30 ML ORAL.SUSP. PO PRN (06:00)
[2020-02-17 07:00] VITALS: BP 101/50
[2020-02-17] MEDS: LEVOTHYROXINE 50 MCG TABLET PO SCH (07:30)
[2020-02-17] MEDS: CHOLECALCIFEROL (VITAMIN D3) 1,000 UNIT TABLET PO SCH (08:31)
[2020-02-17] MEDS: SENNOSIDES/DOCUSATE 8.6/50MG TABLET. PO SCH (08:31)
[2020-02-17] MEDS: MULTIVITAMIN with MINERAL TABLET. PO SCH (08:31)
[2020-02-17] MEDS: ACETAMINOPHEN 500 MG TABLET PO SCH ×3 (08:31→21:00)
[2020-02-17] MEDS: DICLOFENAC SODIUM 25 MG TABLET.DR PO SCH ×2 (08:31→21:00)
[2020-02-17] MEDS: FERROUS SULFATE 325 MG TABLET. PO SCH ×2 (08:31→17:04)
--- NOTE | 2020-02-17 08:52 | PDOC ---
ORTHO PROGRESS NOTES DATE: 02/17/20 TIME: 08:50 Subjective Pain tolerable, was up with husbands help yesterday. Rash better Vitals Vital Signs Date Time Temp Pulse Resp B/P (MAP) Pulse Ox O2 Delivery O2 Flow Rate FiO2 02/17/20 07:00 98.1 64 16 101/50 (67) 97 Room Air 98.1 02/16/20 15:05 2 Labs Laboratory Tests Test 02/16/20 06:38 Prothrombin Time 12.3 SEC (11.7-14.0) Prothromb Time International Ratio 1.0 (0.8-1.1) Activated Partial Thromboplast Time 19 SEC (24-38) Notes A and A in bed normal m/s distally RLE vac in place Assessment and Plan PT/OT, coumadin likely home tomorrow with outpatient REMIGIO HOLDEN II, MD Feb 17, 2020 08:52
--- NOTE | 2020-02-17 08:54 | DISCH ---
DISCHARGE INSTRUCTIONS Condition on Discharge Condition on Discharge: Stable Activity After Discharge Activity Instructions for Disc: Other, see below Bathing Instructions: Shower-keep dressing dry Driving Instructions after Dis: Do not drive Weight Bearing Status after Di: As tolerated Diet after Discharge Diet after Discharge: Regular Wound Incision Care Wound/Incision Care: Ice to area for comfort, Keep wound/cast CDI, Do not change dressing Contacting the [facility] after DC Call your doctor for: Concerns you may have Follow-Up Follow up with: Ortho in 2 wks Warfarin Follow-Up Warfarin Follow UP: per Pharmacy REMIGIO HOLDEN II, MD Feb 17, 2020 08:54
--- NOTE | 2020-02-17 09:30 | NUR ---
Transfer of care and report given to EUN Gonzalez, patient to be transferred to room 458.
--- NOTE | 2020-02-17 09:51 | NUR ---
Patient moved to room 458 around 0940 by this nurse and EUN Gonzalez. Patient moved with all her belongings. Family aware and present. Report obtained by EUN Gonzalez by Heather on 4N
[2020-02-17 10:00] LABS: HEMATOCRIT 30.7 % (36.0-47.0); HEMOGLOBIN 10.3 g/dL (12.0-15.5)
[2020-02-17 10:12] LABS: PROTHROMBIN TIME PATIENT 14.7 SEC (11.7-14.0)
[2020-02-17 10:15] LABS: CALCIUM 8.4 mg/dL (8.5-10.1); CREATININE 0.9 mg/dL (0.6-1.0); GFR 63.2; POTASSIUM 3.7 mmol/L (3.5-5.1)
[2020-02-17 10:57] VITALS: BP 109/62
[2020-02-17] MEDS ORDERED: ONDANSETRON PF 4 MG/2 ML VIAL. IVP PRN (12:00)
[2020-02-17] MEDS ORDERED: ONDANSETRON ODT 4 MG TAB.RAPDIS. PO PRN (12:00)
--- NOTE | 2020-02-17 14:50 | NUR ---
Patients hemovac was removed without any complications noted around 1445 with the tip intact. MINA dressing working properly with green light flashing and a scant amount of bloody drainage noted on the dressing. Will continue to monitor.
--- NOTE | 2020-02-17 15:53 | PDOC ---
[facility] PROGRESS NOTE Date of Service DOS: DATE: 02/17/20 TIME: 15:47 Chief Complaint Chief Complaint A/P: Rash - noted on chest. This appears to be sun-related skin damage from recent outdoor exposure. Right knee OA s/p TKA - 02/16/2020. Pain control, PT, IS bedside. Warfarin for thromboprophylaxis appropriate Prediabetes - with A1c 5.8 and weight the current AACE guidelines recommend metformin therapy and lifestyle modification. Will place on sliding scale and outpatient metformin therapy can start Obesity - counseled on diet, exercise Hypothyroidism - cont levothyroxine 50mcg daily CHERIE on CPAP - ok to use home device IBD - collagenous colitiis on entocort QHS, will continue MRSA nares positive - cont chlorhexidine body wash and patient completed 5 days mupirocin nasal decolonization starting 02/10/2020. Perioperative vancomycin is appropriate coverage. FEN - ADA diet PPX - warfarin FULL CODE Dispo - observation for post-op right total knee arthroplasty with no immediate complications. I anticipate discharge home in AM per orthopedic surgery. History of Present Illness History of Present Illness Ms Mercer is a 65yo F w/ PMHx prediabetes, obesity, hypothyroidism, CHERIE on CPAP, IBD, OA of right knee who presents for a right total knee arthroplasty. Tolerated procedure well. EKG - NSR Labs with HbA1c 5.8, INR 1, WBC 6.1, Hb 13.5, platelets 256, albumin 3.7, NA 140, K4.4, BUN 15, CR 0.9, glucose 96, vitamin D 39.3, CRP 3.7. UA bland. Post-op right knee XR with arthroplasty in expected position. Seen post-operatively for concern for rash on her chest noted after vancomycin infusion. She did have MRSA nares positive and pre-op chlorhexidine was given as well as aforementioned vancomycin. She did spend a week in [place] with on a golf trip over a week ago and has a suntan, this appears to be cause of her skin discoloration. She is in good spirits, seen bedside with her . 02/16: Patient evaluated bedside, status post right knee arthroplasty. She has no complaints today. She plans to discharge tomorrow with close PCP follow-up. Vitals/I&O Vitals/I&O: Vital Signs Date Time Temp Pulse Resp B/P (MAP) Pulse Ox O2 Delivery O2 Flow Rate FiO2 02/17/20 15:38 96 Room Air 02/17/20 10:57 98.3 65 20 109/62 (78) 98.3 02/16/20 15:05 2 I & O 02/16/20 02/16/20 02/17/20 15:00 23:00 07:00 Intake Total 2510 ml 480 ml 170 ml Output Total 250 ml 270 ml Balance 2260 ml 480 ml -100 ml Physical Exam General: Alert, Oriented X3, Cooperative, No acute distress Heart: Regular rate, Normal S1, Normal S2, No murmurs Abdomen: Normal bowel sounds, Soft, No tenderness, No hepatosplenomegaly, No masses Extremities: No clubbing, No cyanosis, Normal pulses, Other (Right knee in wrap) Skin: No rashes, No breakdown Labs Labs: Laboratory Tests Test 02/17/20 08:55 Hemoglobin 10.3 g/dL (12.0-15.5) Hematocrit 30.7 % (36.0-47.0) Mean Corpuscular Hemoglobin Concent 34 g/dL (31-37) Prothrombin Time 14.7 SEC (11.7-14.0) Prothromb Time International Ratio 1.2 (0.8-1.1) Sodium Level 143 mmol/L (136-145) Potassium Level 3.7 mmol/L (3.5-5.1) Chloride Level 107 mmol/L (98-107) Carbon Dioxide Level 25 mmol/L (21-32) Anion Gap 11 (6-14) Blood Urea Nitrogen 12 mg/dL (7-20) Creatinine 0.9 mg/dL (0.6-1.0) Estimated GFR (Cockcroft-Gault) 63.2 Glucose Level 115 mg/dL (70-99) Calcium Level 8.4 mg/dL (8.5-10.1) Review of Systems Review of Systems: Denies fever, denies chest pain, shortness of breath. Assessment and Plan Problems: (1) Right knee DJD Comment Review of Relevant I have reviewed the following items demario (where applicable) has been applied. Medications: Current Medications Medications (Trade) Dose Ordered Sig/Gabriel Route PRN Reason Start Time Stop Time Status Last Admin Dose Admin Multivitamins (Thera M Plus) 1 tab DAILY PO 02/17/20 09:00 02/17/20 08:31 Senna/Docusate Sodium (Senna Plus) 1 tab DAILY PO 02/17/20 09:00 02/17/20 08:31 Ferrous Sulfate (Feosol) 325 mg BIDWMEALS PO 02/16/20 17:00 02/17/20 08:31 Vancomycin HCl 1 gm/Sodium Chloride 250 ml @ 250 mls/hr 1X ONCE IV 02/16/20 19:00 02/16/20 19:59 DC 02/16/20 20:54 Acetaminophen (Tylenol) 1,000 mg Q6H PO 02/17/20 09:00 02/17/20 13:13 Atorvastatin Calcium (Lipitor) 10 mg HS PO 02/16/20 21:00 02/16/20 20:51 Levothyroxine Sodium (Synthroid) 50 mcg DAILYAC PO 02/17/20 07:30 02/17/20 07:30 Vitamin D (Vitamin D3) 1,000 unit DAILY PO 02/17/20 09:00 02/17/20 08:31 Diclofenac Sodium (Voltaren) 75 mg BID PO 02/16/20 21:00 02/17/20 08:31 Justifications for Admission Other Justification JARAD MUÑOZ MD Feb 17, 2020 15:53
[2020-02-17] MEDS ORDERED: WARFARIN 7.5 MG TABLET. PO ONE (16:00)
[2020-02-17] MEDS ORDERED: WARFARIN 5 MG TABLET. PO ONE (16:00)
[2020-02-17] MEDS ORDERED: BISACODYL 10 MG SUPP.RECT. PR PRN (16:00)
[2020-02-17] MEDS: BUDESONIDE 3 MG CAP.ER.24H. PO SCH ×3 (17:05→20:58)
[2020-02-17] MEDS: fentaNYL PF VIAL 100 MCG/2 ML VIAL IVP PRN ×2 (18:20→21:00)
[2020-02-17 18:38] VITALS: BP 132/66
[2020-02-17] MEDS: diphenhydrAMINE HCL 25 MG CAPSULE PO SCH (20:53)
[2020-02-17] MEDS: ATORVASTATIN CALCIUM 10 MG TABLET. PO SCH (21:00)
[2020-02-18] MEDS: oxyCODONE IR 5 MG TABLET PO PRN ×3 (00:21→13:33)
[2020-02-18] MEDS: ACETAMINOPHEN 500 MG TABLET PO SCH ×3 (03:00→13:35)
[2020-02-18 05:15] LABS: BASO % 0 % (0-3); EOS # 0.2 x10^3/uL (0.0-0.7); EOS % 3 % (0-3); HEMATOCRIT 29.1 % (36.0-47.0); HEMOGLOBIN 9.9 g/dL (12.0-15.5); LYMPH # 2.3 x10^3/uL (1.0-4.8); LYMPH % 29 % (24-48); MEAN CORPUSCULAR HEMOGLOBIN 33 pg (25-35); MEAN CORPUSCULAR HGB CONC 34 g/dL (31-37); MEAN CORPUSCULAR VOLUME 98 fL (79-100); MONO # 0.7 x10^3/uL (0.0-1.1); MONO % 9 % (0-9); NEUT # 4.7 x10^3/uL (1.8-7.7); NEUT % 59 % (31-73); PLATELET COUNT 186 x10^3/uL (140-400); RED BLOOD COUNT 2.97 x10^6/uL (3.50-5.40); RED CELL DISTRIBUTION WIDTH 13.6 % (11.5-14.5); WHITE BLOOD COUNT 7.9 x10^3/uL (4.0-11.0)
[2020-02-18 05:21] LABS: PROTHROMBIN TIME PATIENT 16.7 SEC (11.7-14.0)
[2020-02-18 05:52] LABS: CALCIUM 8.3 mg/dL (8.5-10.1); CREATININE 0.8 mg/dL (0.6-1.0); GFR 72.4; POTASSIUM 4.1 mmol/L (3.5-5.1)
[2020-02-18] MEDS: LEVOTHYROXINE 50 MCG TABLET PO SCH (06:27)
[2020-02-18 06:37] VITALS: BP 129/64
--- NOTE | 2020-02-18 08:00 | NUR ---
Sheila is sitting up in recliner and states that she had a good night. she is comfortable at this time. Looking forward to her shower this am. still would like to leave before 3pm
--- NOTE | 2020-02-18 08:07 | PDOC ---
ORTHO PROGRESS NOTES DATE: 02/18/20 TIME: 08:04 Subjective Patient states feeling much better than she did first postop day. Post-op Day: 2 Procedure Right total knee arthroplasty Vitals Vital Signs Date Time Temp Pulse Resp B/P (MAP) Pulse Ox O2 Delivery O2 Flow Rate FiO2 02/18/20 06:37 98.2 86 20 129/64 (85) 92 Room Air 98.2 Labs Laboratory Tests Test 02/17/20 08:55 02/18/20 04:45 Hemoglobin 10.3 g/dL (12.0-15.5) 9.9 g/dL (12.0-15.5) Hematocrit 30.7 % (36.0-47.0) 29.1 % (36.0-47.0) Mean Corpuscular Hemoglobin Concent 34 g/dL (31-37) 34 g/dL (31-37) Prothrombin Time 14.7 SEC (11.7-14.0) 16.7 SEC (11.7-14.0) Prothromb Time International Ratio 1.2 (0.8-1.1) 1.4 (0.8-1.1) Sodium Level 143 mmol/L (136-145) 142 mmol/L (136-145) Potassium Level 3.7 mmol/L (3.5-5.1) 4.1 mmol/L (3.5-5.1) Chloride Level 107 mmol/L (98-107) 109 mmol/L (98-107) Carbon Dioxide Level 25 mmol/L (21-32) 24 mmol/L (21-32) Anion Gap 11 (6-14) 9 (6-14) Blood Urea Nitrogen 12 mg/dL (7-20) 12 mg/dL (7-20) Creatinine 0.9 mg/dL (0.6-1.0) 0.8 mg/dL (0.6-1.0) Estimated GFR (Cockcroft-Gault) 63.2 72.4 Glucose Level 115 mg/dL (70-99) 101 mg/dL (70-99) Calcium Level 8.4 mg/dL (8.5-10.1) 8.3 mg/dL (8.5-10.1) White Blood Count 7.9 x10^3/uL (4.0-11.0) Red Blood Count 2.97 x10^6/uL (3.50-5.40) Mean Corpuscular Volume 98 fL (79-100) Mean Corpuscular Hemoglobin 33 pg (25-35) Red Cell Distribution Width 13.6 % (11.5-14.5) Platelet Count 186 x10^3/uL (140-400) Neutrophils (%) (Auto) 59 % (31-73) Lymphocytes (%) (Auto) 29 % (24-48) Monocytes (%) (Auto) 9 % (0-9) Eosinophils (%) (Auto) 3 % (0-3) Basophils (%) (Auto) 0 % (0-3) Neutrophils # (Auto) 4.7 x10^3/uL (1.8-7.7) Lymphocytes # (Auto) 2.3 x10^3/uL (1.0-4.8) Monocytes # (Auto) 0.7 x10^3/uL (0.0-1.1) Eosinophils # (Auto) 0.2 x10^3/uL (0.0-0.7) Basophils # (Auto) 0.0 x10^3/uL (0.0-0.2) Laboratory Tests Test 02/17/20 08:55 02/18/20 04:45 Hemoglobin 10.3 g/dL (12.0-15.5) 9.9 g/dL (12.0-15.5) Hematocrit 30.7 % (36.0-47.0) 29.1 % (36.0-47.0) Mean Corpuscular Hemoglobin Concent 34 g/dL (31-37) 34 g/dL (31-37) Prothrombin Time 14.7 SEC (11.7-14.0) 16.7 SEC (11.7-14.0) Prothromb Time International Ratio 1.2 (0.8-1.1) 1.4 (0.8-1.1) Sodium Level 143 mmol/L (136-145) 142 mmol/L (136-145) Potassium Level 3.7 mmol/L (3.5-5.1) 4.1 mmol/L (3.5-5.1) Chloride Level 107 mmol/L (98-107) 109 mmol/L (98-107) Carbon Dioxide Level 25 mmol/L (21-32) 24 mmol/L (21-32) Anion Gap 11 (6-14) 9 (6-14) Blood Urea Nitrogen 12 mg/dL (7-20) 12 mg/dL (7-20) Creatinine 0.9 mg/dL (0.6-1.0) 0.8 mg/dL (0.6-1.0) Estimated GFR (Cockcroft-Gault) 63.2 72.4 Glucose Level 115 mg/dL (70-99) 101 mg/dL (70-99) Calcium Level 8.4 mg/dL (8.5-10.1) 8.3 mg/dL (8.5-10.1) White Blood Count 7.9 x10^3/uL (4.0-11.0) Red Blood Count 2.97 x10^6/uL (3.50-5.40) Mean Corpuscular Volume 98 fL (79-100) Mean Corpuscular Hemoglobin 33 pg (25-35) Red Cell Distribution Width 13.6 % (11.5-14.5) Platelet Count 186 x10^3/uL (140-400) Neutrophils (%) (Auto) 59 % (31-73) Lymphocytes (%) (Auto) 29 % (24-48) Monocytes (%) (Auto) 9 % (0-9) Eosinophils (%) (Auto) 3 % (0-3) Basophils (%) (Auto) 0 % (0-3) Neutrophils # (Auto) 4.7 x10^3/uL (1.8-7.7) Lymphocytes # (Auto) 2.3 x10^3/uL (1.0-4.8) Monocytes # (Auto) 0.7 x10^3/uL (0.0-1.1) Eosinophils # (Auto) 0.2 x10^3/uL (0.0-0.7) Basophils # (Auto) 0.0 x10^3/uL (0.0-0.2) Notes Awake and alert sitting up in a chair bedside asking to go home. Assessment and Plan Postop day #2 status post right total knee arthroplasty. Motor and sensation intact distally at the right lower extremity. Dressing is dry and intact. Up with PT today. Discharged today. Follow-up in 10 [address] Stephen in clinic. ELEONORA SMILEY APRN Feb 18, 2020 08:07
[2020-02-18] MEDS: SENNOSIDES/DOCUSATE 8.6/50MG TABLET. PO SCH (09:03)
[2020-02-18] MEDS: CHOLECALCIFEROL (VITAMIN D3) 1,000 UNIT TABLET PO SCH (09:03)
[2020-02-18] MEDS: MULTIVITAMIN with MINERAL TABLET. PO SCH (09:03)
[2020-02-18] MEDS: DICLOFENAC SODIUM 25 MG TABLET.DR PO SCH (09:03)
[2020-02-18] MEDS: FERROUS SULFATE 325 MG TABLET. PO SCH (09:05)
--- NOTE | 2020-02-18 11:27 | NUR ---
Pharmacy Warfarin Dosing Note S:Pharmacy consulted to assist with anticoagulation therapy started 02/17/20 with target INR: 1.6 - 2.5 O:DEWAYNE VELEZ is a 65 year old F with TKA LABS: Last INR: 1.4 Last HGB: 9.9 Last HCT: 29.1 Last PLT: 186 Last dose of 7.5 mg given on 02/17/20 at 1705 Previous Regimen: Vitamin K given: Drug Interaction Changes: Ongoing Drug Interactions: A:INR of 1.4 is below desired range. Target range for this patient is: 1.6 - 2.5 P: Warfarin dose: 5 mg Prior to Discharge Bridge Therapy: None Next INR due 02/20/20. Pharmacy anticoagulation service will continue to follow. JEAN MARIE FLOWERS RPH, 02/18/20 1122
[2020-02-18] MEDS ORDERED: WARF4TAB64 PO (12:04)
[2020-02-18 12:32] VITALS: BP 137/57
--- NOTE | 2020-02-18 12:40 | NUR ---
reviewed written discharge instructions and discharge paper work is given to Perry. reviewed restrictions to activities of daily living such as bathing incisional care, new medications and followup with Dr. Stephen and outpatient therapy as well as the lab draws. she verbalized understanding of these. script for op therapy and Percocet given.
[2020-02-18] MEDS ORDERED: WARFARIN 5 MG TABLET. PO ONE (13:00)
--- NOTE | 2020-02-18 14:10 | NUR ---
reviewed orally discharge instructions. all questions answered. passed physical therapy. home with and belongings, cell phone and scripts
--- NOTE | 2020-02-18 18:08 | PATHOLOGY ---
[facility] Accession Number: [id number] . 01 Material submitted: . knee - RIGHT KNEE BONE AND TISSUE. Modifiers: right . 01 Clinical history: . DJD, RIGHT KNEE OSTEOARTHRITIS . 02 Diagnosis: Segments of bone and soft tissue, right total knee arthroplasty: - Advanced degenerative arthritis. (JPM:senior it project manager; 02/18/2020) MBR 02/18/2020 1037 Local . 02 Electronically signed: . Lul Ruiz MD, Pathologist NPI- [id number] . 01 Gross description: . The specimen is received in formalin, labeled "Jennifer Mercer, right knee bone and tissue" and consists of multiple segments of bone including the tibial plateau with minimal attached soft tissue measuring 14.4 x 10.8 x 2.1 cm. The meniscus is present. The articular surfaces display eburnation. Vegetable Grader tissue is submitted in A1-A2 with A2 following decalcification. (SDY; 02/17/2020) SYU/SYU 02/17/2020 1106 Local . 02 Pathologist provided ICD-10: M17.11 . 02 CPT . 080558, 510238 Specimen Comment: A courtesy copy of this report has been sent to [phone] Specimen Comment: [id number] Specimen Comment: Report sent to / DR CURTIS Performed at: 01 [facility] [address], [place] [id number] MD Vijay Moseley MD Phone: [phone] Performed at: 02 [facility] [address] [place], [place] [id number] MD Lul Ruiz MD Phone: [phone]
== END 2020-02-18 14:00 | disposition home or self-care (01) ==
LOC: SURG 06:11 → 4 NORTH 07:07 → 4 SOUTHEST 02-17 09:46
PROVIDERS: ADMIT Orthopaedic Surgery Sports Medicine; ATTEND Orthopaedic Surgery Sports Medicine
DX: M17.11 Unilateral primary osteoarthritis, right knee (principal); E03.9 Hypothyroidism, unspecified; E66.9 Obesity, unspecified; K58.9 Irritable bowel syndrome, unspecified; G47.33 Obstructive sleep apnea (adult) (pediatric); R73.03 Prediabetes; R21 Rash and other nonspecific skin eruption; Z79.01 Long term (current) use of anticoagulants; Z68.34 Body mass index [BMI] 34.0-34.9, adult
CPT/HCPCS: 27447; 36415; 73560; 80048; 85014; 85018; 85025; 85610; 85730; 86850; 86900; 86901; 96365; 96375; 96376; 97110; 97116; 97150; 97162; 97166; 97530; 97535; A7015; C1713; C1769; G0378; G0379; J0171; J0690; J1100; J1200; J1885; J2270; J2405; J2704; J2795; J3010; J3370; J3490; J7030; J7050; J7120

== ENCOUNTER → 2020-09-14 | Outpatient (CLI) | payer OTHER ==
[~2020-09-14] MED LIST changes: -ACETAMINOPHEN 500 MG TABLET PO PRN; -GABAPENTIN 300 MG CAPSULE. PO PRN; -MELOXICAM 7.5 MG TABLET PO PRN; -TRANEXAMIC ACID 1,000 MG in IV NS 50ML -- 1ST BAG INJ ONE; -TV=100ml MORPHINE 5 MG, KETOROLAC 30 MG, ROPIVacaine 0.5% PF 60 ML, EPINEPH... INT ART ONE; -VANCOMYCIN 1GM IVPB FOR OMNI 250 ML IV PRN; +WARF4TAB64 PO
--- NOTE | 2020-09-14 15:02 | KCIC ---
Bilateral diagnostic digital mammograms with 3-D tomosynthesis: Reason for examination: Follow-up nodule. Comparison is made to previous studies dated 02/09/2020 and 06/04/2019. Bilateral mammograms in CC and oblique projections were obtained with 2-D imaging and 3-D tomosynthes is imaging on a Siemens Inspiration unit and reviewed on the workstation. Interpretation was made wit h the benefit of CAD. The skin and nipples show no abnormalities. No abnormal axillary lymph nodes are seen. The breast par enchyma shows scattered fatty and fibroglandular density. (Breast density: Category B.) There continu ed be small nodular densities at the 9:00 position 6 cm from the nipple and at 9:00 position 8 cm fro m the nipple which are stable. There are small intramammary lymph nodes at the 10:00 C position of th e right breast. There also continues to be a small intramammary lymph node at the 2:00 B position of the left breast which is stable. There are no new dominant masses, suspicious calcifications or archi tectural distortion. Impression: Presence of small nodules at the 9:00 position of the right breast and intramammary lymph nodes bilat erally. Right breast ultrasound to follow. BI-RADS Category 0: Incomplete. Needs additional imaging evaluation. Right breast ultrasound: Comparison is made to previous studies dated 02/09/2020 and 06/18/2019. Ultrasound examination of the right breast and axilla was performed. At the 9:00 position 6 cm from the nipple, there continues be a 1.2 cm hypoechoic circumscribed lesio n in parallel orientation with a fibrocystic appearance. At the 9:00 position 8 cm from the nipple, t here is a hypoechoic circumscribed lesion in parallel orientation measuring 1.5 cm in greatest dimens ion with a fibroadenoma in appearance. At the 9:00 position 14.5 cm from the nipple, there is a small 3.9 mm intramammary lymph node. No abnormal appearing lymph nodes are seen in the right axilla. IMPRESSION: Stable fibrocystic lesion at the 9:00 position 6 cm from the nipple. 1.5 cm circumscribed nodule consistent with probable fibroadenoma at the 9:00 position 8 cm from the nipple. Recommend 6 month follow-up with ultrasound. BI-RADS Category 3: Probably Benign. "Our facility is accredited by the [employer] Mammography Program." This patient's information has been entered into a reminder system for the patient to be notified wit h the results of her examination and a target date for the next mammogram. Electronically signed by: Minnie Gonzales MD (09/14/2020 3:00 PM) [id number]
== END ==
LOC: KCIC MAMMO 13:09
PROVIDERS: ATTEND Nurse Practitioner Family
DX: N63.13 Unspecified lump in the right breast, lower outer quadrant (principal)
CPT/HCPCS: 76641; 77066; G0279; 77062

== ENCOUNTER → 2021-01-10 | Outpatient (CLI) | payer OTHER ==
[2021-01-10 08:56] LABS: BASO # 0.1 x10^3/uL (0.0-0.2); BASO % 1 % (0-3); EOS # 0.2 x10^3/uL (0.0-0.7); EOS % 4 % (0-3); HEMATOCRIT 39.6 % (36.0-47.0); HEMOGLOBIN 13.1 g/dL (12.0-15.5); LYMPH # 1.7 x10^3/uL (1.0-4.8); LYMPH % 30 % (24-48); MEAN CORPUSCULAR HEMOGLOBIN 32 pg (25-35); MEAN CORPUSCULAR HGB CONC 33 g/dL (31-37); MEAN CORPUSCULAR VOLUME 97 fL (79-100); MONO # 0.4 x10^3/uL (0.0-1.1); MONO % 8 % (0-9); NEUT # 3.3 x10^3/uL (1.8-7.7); NEUT % 57 % (31-73); PLATELET COUNT 249 x10^3/uL (140-400); RED BLOOD COUNT 4.08 x10^6/uL (3.50-5.40); WHITE BLOOD COUNT 5.7 x10^3/uL (4.0-11.0)
[2021-01-10 09:09] LABS: ALBUMIN 3.7 g/dL (3.4-5.0); ALBUMIN/GLOBULIN RATIO 1.2 (1.0-1.7); CALCIUM 8.7 mg/dL (8.5-10.1); CREATININE 0.9 mg/dL (0.6-1.0); GFR 63.2; POTASSIUM 4.7 mmol/L (3.5-5.1); TOTAL BILIRUBIN 0.3 mg/dL (0.2-1.0); TOTAL PROTEIN 6.9 g/dL (6.4-8.2)
[2021-01-10 09:10] LABS: CHOLESTEROL/HDL RATIO 3.6
[2021-01-10 09:33] LABS: FREE T4 1.02 ng/dL (0.76-1.46); THYROID STIM HORMONE (TSH) 2.179 uIU/mL (0.358-3.74)
== END ==
LOC: LAB 08:18
PROVIDERS: ATTEND Nurse Practitioner Family
DX: E03.9 Hypothyroidism, unspecified (principal); E78.5 Hyperlipidemia, unspecified; E55.9 Vitamin D deficiency, unspecified
CPT/HCPCS: 36415; 80053; 80061; 82306; 84439; 84443; 85025